=== PATIENT | male | born 1990 | race Caucasian/White ===

== ENCOUNTER 2017-09-06 17:33 | Emergency (ER) | payer BC, OTHER ==
[2017-09-06] MEDS ORDERED: IBUPROFEN 600 MG TAB PO ONE (18:01)
[2017-09-06 18:07] VITALS: RESP 18; TEMP 98.8; O2SAT 100
[2017-09-06] MEDS ORDERED: IBUPROFEN 600 MG TAB ONE (18:12)
[2017-09-06 18:18] VITALS: BP 123/70; PULSE 61
== END 2017-09-06 18:48 | disposition home or self-care (01) ==
LOC: ED 17:33
DX: M94.0 Chondrocostal junction syndrome [Tietze] (principal)
CPT/HCPCS: 71045; 71046; 93005; 99283; A9270-GY